=== PATIENT | female | born 1955 | race Caucasian/White ===

== ENCOUNTER → 2016-12-08 | Outpatient (CLI) | payer MEDICAID ==
--- NOTE | 2016-12-09 10:54 | MM ---
Reason for exam: screening (asymptomatic). Last mammogram was performed 1 year and 7 months ago. History: Patient is postmenopausal. Physical Findings: A clinical breast exam by your physician is recommended on an annual basis and results should be correlated with mammographic findings. MG 3D Screening Mammo W/Cad Bilateral CC and MLO view(s) were taken. Prior study comparison: May 23, 2015, bilateral MG 3d screening mammo w/cad. December 22, 2012, mammogram, performed at [facility]. There are scattered fibroglandular densities. There is no discrete abnormality. No significant changes when compared with prior studies. ASSESSMENT: Negative, BI-RAD 1 RECOMMENDATION: Routine screening mammogram of both breasts in 1 year.
== END | disposition home or self-care (01) ==
LOC: RADMAMWWP 13:17
PROVIDERS: ATTEND Obstetrics & Gynecology
DX: Z12.31 Encounter for screening mammogram for malignant neoplasm of breast (principal)
CPT/HCPCS: 77063; G0202

== ENCOUNTER → 2017-05-22 | Outpatient (CLI) | payer MEDICAID ==
--- NOTE | 2017-05-23 12:13 | MR ---
EXAMINATION TYPE: MR lumbar spine wo con DATE OF EXAM: 05/22/2017 COMPARISON: NONE HISTORY: Low Back pain x20 years, pain mostly LLE TECHNIQUE: Multiplanar, multisequence images of the lumbar spine were acquired. FINDINGS: There is grade 1 anterolisthesis of L4 on L5. Patchy bone marrow signal is within normal li mits overall with multiple T1 hyperintense and T2 hyperintense vertebral body hemangiomas specificall y at L4 and S1. Degenerative endplate changes and Schmorl's nodes are noted most significant at L5-S1 . Multilevel disc desiccation is seen throughout the visualized thoracolumbar spine. Vertebral body h eights are maintained. L1-L2: There is a small left paracentral disc herniation creating mild spinal canal stenosis without neural foraminal narrowing bilaterally. L2-L3: There is a small broad-based disc bulge, facet arthropathy and ligamentum flavum buckling that creates mild spinal canal stenosis with only very minimal neural foraminal narrowing bilaterally. L3-L4: There is a broad-based disc bulge, facet arthropathy and ligamentum flavum buckling creating m ild bilateral neural foraminal narrowing and spinal canal stenosis. L4-L5: There is disc uncovering secondary to the anterolisthesis of L4 on L5. Facet arthropathy and l igamentum flavum buckling contribute to mild spinal canal stenosis and minimal bilateral neural hiram inal narrowing. L5-S1: There is a disc bulge, facet arthropathy and ligamentum flavum buckling that create minimal bi lateral neural foraminal narrowing. No spinal canal stenosis. IMPRESSION: 1. Small left paracentral disc herniation at L1-L2 creating mild spinal canal stenosis. 2. Grade 1 anterolisthesis of L4 and L5 with disc uncovering. 3. Moderate multilevel degenerative disc disease resulting in mild spinal canal stenosis from L1 thro ugh L5 and variable degrees of neural foraminal stenosis as described above.
== END | disposition home or self-care (01) ==
LOC: RADMRIMAIN 14:37
PROVIDERS: ATTEND Physical Medicine & Rehabilitation
DX: M48.061 Spinal stenosis, lumbar region without neurogenic claudication (principal); M99.73 Connective tissue and disc stenosis of intervertebral foramina of lumbar region; M51.16 Intervertebral disc disorders with radiculopathy, lumbar region; M43.16 Spondylolisthesis, lumbar region
CPT/HCPCS: 72148

== ENCOUNTER → 2017-07-27 | Outpatient (CLI) | payer MEDICAID ==
[2017-07-27 13:10] LABS: HCT 40.6 % (34.0-46.0); HGB 13.8 gm/dL (11.4-16.0); MCH 30.6 pg (25.0-35.0); MCHC 33.9 g/dL (31.0-37.0); MCV 90.1 fL (80.0-100.0); Mean Platelet Volume 7.1; Platelet Count 223 k/uL (150-450); RBC 4.51 m/uL (3.80-5.40); WBC 6.5 k/uL (3.8-10.6)
[2017-07-27 13:24] LABS: ALT 30 U/L (9-52); AST 35 U/L (14-36); Albumin 4.1 g/dL (3.5-5.0); Alkaline Phosphatase 88 U/L (38-126); Anion Gap 11 mmol/L; Blood Urea Nitrogen 18 mg/dL (7-17); Calcium 9.8 mg/dL (8.4-10.2); Carbon Dioxide 29 mmol/L (22-30); Chloride 104 mmol/L (98-107); Glucose 130 mg/dL (74-99); Potassium 4.6 mmol/L (3.5-5.1); Sodium 144 mmol/L (137-145); Total Bilirubin 0.6 mg/dL (0.2-1.3); Total Protein 7.2 g/dL (6.3-8.2)
== END | disposition home or self-care (01) ==
LOC: LABWHC1 12:47
PROVIDERS: ATTEND Internal Medicine
DX: K21.9 Gastro-esophageal reflux disease without esophagitis (principal)
CPT/HCPCS: 36415; 80053; 85027

== ENCOUNTER 2017-08-24 06:10 | Day surgery (SDC) | payer MEDICAID ==
[2017-08-19 14:23] VITALS: BMI 23.1
[~2017-08-24 06:10] MED LIST: LACTATED RINGERS 1,000 ML IV SCH
[2017-08-24 06:55] VITALS: RESP 16; TEMP 97.9
[2017-08-24] MEDS ORDERED: LACTATED RINGERS 1,000 ML IV ONE (06:57)
[2017-08-24] MEDS ORDERED: PROPOFOL 10 MG/ML 20 ML VIAL IV ONE (07:04)
[2017-08-24] MEDS ORDERED: MIDAZOLAM 2 MG/2 ML VIAL ONE (07:04)
[2017-08-24] MEDS ORDERED: GLYCOPYRROLATE 0.2 MG/ML 2 ML VIAL ONE (07:04)
[2017-08-24] MEDS ORDERED: LIDOCAINE 1% INJ 10MG/ML (20 ML MDV) ONE (07:04)
[2017-08-24 07:50] VITALS: BP 137/84; PULSE 80
--- NOTE | 2017-08-24 08:03 | P.OP ---
Date of Procedure: 08/24/17 Preoperative Diagnosis: abdominal pain, GERD Postoperative Diagnosis: Gastritis Procedure(s) Performed: EGD with biopsy x 2 Anesthesia: MAC Surgeon: Saqib Real Estimated Blood Loss (ml): 1 Condition: stable Disposition: PACU Description of Procedure: Patient brought into the endo suite, timeout performed, correct patient, site, procedure verified. Scope passed down oropharynx and esophagus through stomach to first and second portion of duodenum. Slowly withdrawn, mild gastritis noted , antral biopsy taken, GE juntion biopsy taken, scope retroflexed and no significant hiatal hernia noted, all pinon of stomach were visualized. Slowly withdrawn through esophagus no other abnormalities noted. Patient tolerated procedure well.
== END 2017-08-24 08:46 | disposition home or self-care (01) ==
LOC: ORWHC2ENDO 06:10
PROVIDERS: ATTEND Student in an Organized Health Care Education/Training Program
DX: K29.50 Unspecified chronic gastritis without bleeding (principal); K21.0 Gastro-esophageal reflux disease with esophagitis; M19.90 Unspecified osteoarthritis, unspecified site; E03.9 Hypothyroidism, unspecified; Z79.899 Other long term (current) drug therapy; Z82.49 Family history of ischemic heart disease and other diseases of the circulatory system
CPT/HCPCS: 88305; 43239; J2250; J2001; J2704

== ENCOUNTER → 2017-10-21 | Outpatient (CLI) | payer MEDICAID ==
--- NOTE | 2017-10-21 07:54 | US ---
EXAMINATION TYPE: US abdomen limited DATE OF EXAM: 10/21/2017 COMPARISON: NONE CLINICAL HISTORY: K29.70 gastritis without bleeding. EXAM MEASUREMENTS: Liver Length: 10.0 cm Gallbladder Wall: 0.2 cm CBD: 0.4 cm Right Kidney: 9.8 x 3.5 x 5.1 cm Pancreas: wnl Liver: wnl Gallbladder: No stones seen Evidence for sonographic Vivas's sign: No CBD: wnl Right Kidney: No hydronephrosis or masses seen IMPRESSION: Unremarkable limited abdominal ultrasound.
== END | disposition home or self-care (01) ==
LOC: RADUSWWP 06:52
PROVIDERS: ATTEND Internal Medicine
DX: K29.70 Gastritis, unspecified, without bleeding (principal)
CPT/HCPCS: 76705

== ENCOUNTER → 2017-11-22 | Outpatient (CLI) | payer MEDICAID ==
--- NOTE | 2017-11-22 09:06 | XR ---
EXAMINATION TYPE: XR chest 2V DATE OF EXAM: 11/22/2017 COMPARISON: NONE HISTORY: Shortness of breath TECHNIQUE: Frontal and lateral views of the chest are obtained. FINDINGS: Scattered senescent parenchymal changes noted. Hyperinflation compatible with COPD. No evidence for infiltrate. No evidence for atelectasis. Heart size is stable. Mediastinal structures are stable and grossly unremarkable. No evidence for hilar prominence. Degenerative changes dorsal spine. IMPRESSION: 1. No evidence for acute pulmonary disease.
== END | disposition home or self-care (01) ==
LOC: RADXRMAIN 08:45
PROVIDERS: ATTEND Internal Medicine
DX: R05 Cough (principal)
CPT/HCPCS: 71046

== ENCOUNTER → 2017-12-15 | Outpatient (CLI) | payer MEDICAID ==
--- NOTE | 2017-12-16 12:27 | MM ---
Reason for exam: screening (asymptomatic). Last mammogram was performed 1 year ago. History: Patient is postmenopausal. Physical Findings: A clinical breast exam by your physician is recommended on an annual basis and results should be correlated with mammographic findings. MG 3D Screening Mammo W/Cad Bilateral CC and MLO view(s) were taken. Prior study comparison: December 08, 2016, bilateral MG 3d screening mammo w/cad. May 23, 2015, bilateral MG 3d screening mammo w/cad. There are scattered fibroglandular densities. No significant changes when compared with prior studies. ASSESSMENT: Benign, BI-RAD 2 RECOMMENDATION: Routine screening mammogram of both breasts in 1 year.
== END | disposition home or self-care (01) ==
LOC: RADMAMWWP 07:36
PROVIDERS: ATTEND Obstetrics & Gynecology
DX: Z12.31 Encounter for screening mammogram for malignant neoplasm of breast (principal)
CPT/HCPCS: 77063; 77067

== ENCOUNTER → 2017-12-29 | Outpatient (CLI) | payer MEDICAID ==
--- NOTE | 2017-12-29 12:26 | CT ---
EXAMINATION TYPE: CT chest wo con DATE OF EXAM: 12/29/2017 COMPARISON: Radiographs 11/22/2017 HISTORY: 62-year-old female with cough for 6 months TECHNIQUE: Contiguous axial scanning of the chest without IV contrast. Coronal and sagittal reconstru ctions performed. CT DLP: 511 mGycm Automated exposure control for dose reduction was used. FINDINGS: Heart normal size without pericardial effusion. Aorta normal caliber with conventional arch vessel branching anatomy. Numerous nonenlarged mediastinal lymph nodes are present measuring up to 7 mm. No thoracic lymphadeno michael by CT size criteria. Evaluation of the lungs shows a couple 3 mm pulmonary nodules on the right, axial image 25, 28, and 3 0. Additional 4 mm pulmonary nodules anterior right lung axial images 32 and 34. Minimal distal airways mucoid impaction in the inferior lingula, axial image 48 and to a lesser exten t within the medial segment right middle lobe, axial image 38. Minimal patch of groundglass in the li ngula on axial image 36. 4 mm left midlung pulmonary nodule along the major fissure, axial image 33. No consolidation or pleural effusion. Visualized upper abdomen shows no gross abnormality. Bones: No osseous destructive process. Cervical spondylosis. IMPRESSION: SCATTERED PULMONARY NODULES MEASURING UP TO 4 MM. SOME OF THESE DENSITIES SEEM TO CORRESPOND TO SMALL AIRWAYS MUCOID IMPACTION. THERE IS ALSO A SUBTLE PATCH OF GROUNDGLASS IN THE LINGULA SUGGESTING A NO NSPECIFIC SMALL INFECTIOUS/INFLAMMATORY FOCUS. CORRELATE FOR POSSIBLE BRONCHITIS OR INDOLENT INFECTIO N. ONE-YEAR FOLLOW-UP CAN REASSESS THE PULMONARY NODULES.
== END ==
LOC: RADCTMAIN 10:53
PROVIDERS: ATTEND Internal Medicine
DX: R91.8 Other nonspecific abnormal finding of lung field (principal)
CPT/HCPCS: 71250

== ENCOUNTER → 2018-01-12 | Outpatient (CLI) | payer MEDICAID ==
[2018-01-12 13:24] LABS: Basophils % (A) 1 %; Eosinophils # (A) 0.2 k/uL (0-0.7); Eosinophils % (A) 4 %; HCT 40.5 % (34.0-46.0); HGB 13.1 gm/dL (11.4-16.0); Lymphocytes % (A) 21 %; MCH 30.5 pg (25.0-35.0); MCHC 32.5 g/dL (31.0-37.0); Mean Platelet Volume 7.1; Monocytes # (A) 0.3 k/uL (0-1.0); Monocytes % (A) 7 %; Neutrophils # (A) 3.1 k/uL (1.3-7.7); Neutrophils % (A) 66 %; Platelet Count 228 k/uL (150-450); RBC 4.31 m/uL (3.80-5.40); RDW 12.8 % (11.5-15.5); WBC 4.7 k/uL (3.8-10.6)
[2018-01-13 11:01] LABS: Alt. alternata IgE Class CLASS 0; Alternaria alternata IgE <0.35 kU/L (<0.35); Asperg. fumagatus IgE <0.35 kU/L (<0.35); Asperg. fumagatus IgE Class CLASS 0; Bermuda Grass IgE <0.35 kU/L (<0.35); Birch(Com.Silvr) IgE <0.35 kU/L (<0.35); Birch(Com.Silvr) IgE Class CLASS 0; Cat Epith & Dander IgE <0.35 kU/L (<0.35); Cat Epith & Dander IgE Class CLASS 0; Clad herbarum IgE <0.35 kU/L (<0.35); Cockroach IgE <0.35 kU/L (<0.35); Cottonwood IgE <0.35 kU/L (<0.35); Dermato. Pteronyssinus IgE <0.35 kU/L (<0.35); Dermato. farinae IgE <0.35 kU/L (<0.35); Dermato. farinae IgE Class CLASS 0; Dog Dander IgE <0.35 kU/L (<0.35); Elm IgE <0.35 kU/L (<0.35); Maple (Box Elder) IgE <0.35 kU/L (<0.35); Maple (Box Elder) IgE Class CLASS 0; Mountain Cedar IgE <0.35 kU/L (<0.35); Mountain Cedar IgE Class CLASS 0; Mouse Urine IgE Class CLASS 0; Nettle IgE <0.35 kU/L (<0.35); Nettle IgE Class CLASS 0; Oak IgE <0.35 kU/L (<0.35); Penicillium notatum IgE Class CLASS 0; Rough Marshelder IgE <0.35 kU/L (<0.35); Rough Marshelder IgE Class CLASS 0; Timothy Grass IgE <0.35 kU/L (<0.35); White Ash IgE Class CLASS 0
== END | disposition home or self-care (01) ==
LOC: LABWHC1 12:14
PROVIDERS: ATTEND Internal Medicine Pulmonary Disease
DX: R05 Cough (principal); R06.02 Shortness of breath; J45.909 Unspecified asthma, uncomplicated
CPT/HCPCS: 36415; 82103; 82104; 82785; 85025; 86001; 86003; 86606; 86609

== ENCOUNTER 2018-02-05 12:04 | Emergency (ER) | payer MEDICAID ==
[2018-02-05 12:33] VITALS: RESP 16
[2018-02-05 12:34] VITALS: TEMP 97.2
[2018-02-05] MEDS ORDERED: ONDANSETRON 4 MG/2 ML VIAL IVP STA (13:03)
[2018-02-05] MEDS ORDERED: SODIUM CHLORIDE 0.9% 1,000 ML IV STA (13:03)
[2018-02-05] MEDS ORDERED: PANTOPRAZOLE 40 MG/10 ML VIAL IVP STA (13:03)
--- NOTE | 2018-02-05 13:19 | ED ---
Abdominal Pain HPI - General Chief Complaint: Abdominal Pain Stated Complaint: nausea/vomiting Time Seen by Provider: 02/05/18 12:27 Source: patient, family, RN notes reviewed, old records reviewed Mode of arrival: ambulatory Limitations: no limitations - History of Present Illness Initial Comments: This is a 62-year-old female the ER for evaluation. She was essay for evaluation regarding abdominal pain. Patient does have epigastric periumbilical abdominal pain. No radiation pain is diffuse. No prior history of sore pain no fevers she does have nausea and vomiting no diarrhea. No failure hours of significant similar symptoms. No sick contacts or travel history MD Complaint: abdominal pain Location: diffuse, periumbilical, RUQ, epigastric Migration to: no migration Severity: mild Quality: aching Consistency: constant Improves With: nothing Worsens With: nothing Associated Symptoms: denies other symptoms, vomiting - Related Data Home Medications Medication Instructions Recorded Confirmed Cetirizine HCl [Zyrtec] 10 mg PO HS 07/03/15 08/24/17 Levothyroxine Sodium [Levoxyl] 112 mcg PO DAILY 07/03/15 08/24/17 Naproxen 500 mg PO DAILY 07/03/15 08/24/17 Citalopram Hydrobromide [CeleXA] 20 mg PO DAILY 08/19/17 08/24/17 Previous Rx's Medication Instructions Recorded Nitrofurantoin Monohyd/M-Cryst 100 mg PO Q12HR #10 cap 02/05/18 [Macrobid] Ondansetron Odt [Zofran ODT] 4 mg PO Q8HR PRN #30 tab 02/05/18 Allergies Allergy/AdvReac Type Severity Reaction Status Date / Time No Known Allergies Allergy Verified 02/05/18 12:30 Review of Systems ROS Statement: Those systems with pertinent positive or pertinent negative responses have been documented in the HPI. ROS Other: All systems not noted in ROS Statement are negative. Past Medical History Past Medical History: GERD/Reflux, Osteoarthritis (OA), Thyroid Disorder Additional Past Medical History / Comment(s): hx difficulty swallowing History of Any Multi-Drug Resistant Organisms: None Reported Past Surgical History: Tubal Ligation Past Anesthesia/Blood Transfusion Reactions: No Reported Reaction Past Psychological History: No Psychological Hx Reported Smoking Status: Never smoker Past Alcohol Use History: None Reported Past Drug Use History: None Reported - Past Family History Mother Family Medical History: Cancer Additional Family Medical History / Comment(s): lymphoma Sister(s) Family Medical History: Cancer Additional Family Medical History / Comment(s): colon Father Family Medical History: CVA/TIA Additional Family Medical History / Comment(s): buergers disease General Exam Limitations: no limitations General appearance: alert, in no apparent distress Head exam: Present: atraumatic, normocephalic, normal inspection Eye exam: Present: normal appearance, PERRL, EOMI. Absent: scleral icterus, conjunctival injection, periorbital swelling ENT exam: Present: normal exam, mucous membranes moist Neck exam: Present: normal inspection. Absent: tenderness, meningismus, lymphadenopathy Respiratory exam: Present: normal lung sounds bilaterally. Absent: respiratory distress, wheezes, rales, rhonchi, stridor Cardiovascular Exam: Present: regular rate, normal rhythm, normal heart sounds. Absent: systolic murmur, diastolic murmur, rubs, gallop, clicks GI/Abdominal exam: Present: soft, normal bowel sounds. Absent: distended, tenderness, guarding, rebound, rigid Extremities exam: Present: normal inspection, full ROM, normal capillary refill. Absent: tenderness, pedal edema, joint swelling, calf tenderness Back exam: Present: normal inspection Neurological exam: Present: alert, oriented X3, CN II-XII intact Psychiatric exam: Present: normal affect, normal mood Skin exam: Present: warm, dry, intact, normal color. Absent: rash Course Vital Signs 02/05/18 12:30 Temperature 97.2 F L Pulse Rate 77 Respiratory 16 Rate Blood Pressure 161/88 O2 Sat by Pulse 98 Oximetry Medical Decision Making - Medical Decision Making 62 female the ER for evaluation, patient was essay for evaluation of nausea vomiting abdominal pain. Patient has positive urinary tract infection, nausea is controlled patient can be discharged home - Lab Data Result diagrams: 02/05/18 12:48 02/05/18 12:48 Lab Results 02/05/18 02/05/18 02/05/18 Range/Units 12:48 12:48 12:48 WBC 5.8 (3.8-10.6) k/uL RBC 4.36 (3.80-5.40) m/uL Hgb 13.7 (11.4-16.0) gm/dL Hct 39.6 (34.0-46.0) % MCV 90.8 (80.0-100.0) fL MCH 31.4 (25.0-35.0) pg MCHC 34.6 (31.0-37.0) g/dL RDW 12.8 (11.5-15.5) % Plt Count 222 (150-450) k/uL Neutrophils % 79 % Lymphocytes % 14 % Monocytes % 4 % Eosinophils % 2 % Basophils % 0 % Neutrophils # 4.5 (1.3-7.7) k/uL Lymphocytes # 0.8 L (1.0-4.8) k/uL Monocytes # 0.3 (0-1.0) k/uL Eosinophils # 0.1 (0-0.7) k/uL Basophils # 0.0 (0-0.2) k/uL Sodium 139 (137-145) mmol/L Potassium 3.9 (3.5-5.1) mmol/L Chloride 108 H (98-107) mmol/L Carbon Dioxide 23 (22-30) mmol/L Anion Gap 8 mmol/L BUN 19 H (7-17) mg/dL Creatinine 0.73 (0.52-1.04) mg/dL Est GFR (CKD-EPI)AfAm >90 (>60 ml/min/1.73 sqM) Est GFR (CKD-EPI)NonAf 88 (>60 ml/min/1.73 sqM) Glucose 108 H (74-99) mg/dL Calcium 9.5 (8.4-10.2) mg/dL Total Bilirubin 0.8 (0.2-1.3) mg/dL AST 36 (14-36) U/L ALT 29 (9-52) U/L Alkaline Phosphatase 75 (38-126) U/L Total Creatine Kinase 197 H (30-135) U/L CK-MB (CK-2) 1.3 (0.0-2.4) ng/mL CK-MB (CK-2) Rel Index 0.7 Troponin I <0.012 (0.000-0.034) ng/mL Total Protein 7.3 (6.3-8.2) g/dL Albumin 3.8 (3.5-5.0) g/dL Amylase 74 (30-110) U/L Lipase 55 (23-300) U/L Urine Color Urine Appearance (Clear) Urine pH (5.0-8.0) Ur Specific [place] (1.001-1.035) Urine Protein (Negative) Urine Glucose (UA) (Negative) Urine Ketones (Negative) Urine Blood (Negative) Urine Nitrite (Negative) Urine Bilirubin (Negative) Urine Urobilinogen (<2.0) mg/dL Ur Leukocyte Esterase (Negative) Urine RBC (0-5) /hpf Urine WBC (0-5) /hpf Ur Squamous Epith Cells (0-4) /hpf Hyaline Casts (0-2) /lpf Urine Mucus (None) /hpf 02/05/18 Range/Units 12:48 WBC (3.8-10.6) k/uL RBC (3.80-5.40) m/uL Hgb (11.4-16.0) gm/dL Hct (34.0-46.0) % MCV (80.0-100.0) fL MCH (25.0-35.0) pg MCHC (31.0-37.0) g/dL RDW (11.5-15.5) % Plt Count (150-450) k/uL Neutrophils % % Lymphocytes % % Monocytes % % Eosinophils % % Basophils % % Neutrophils # (1.3-7.7) k/uL Lymphocytes # (1.0-4.8) k/uL Monocytes # (0-1.0) k/uL Eosinophils # (0-0.7) k/uL Basophils # (0-0.2) k/uL Sodium (137-145) mmol/L Potassium (3.5-5.1) mmol/L Chloride (98-107) mmol/L Carbon Dioxide (22-30) mmol/L Anion Gap mmol/L BUN (7-17) mg/dL Creatinine (0.52-1.04) mg/dL Est GFR (CKD-EPI)AfAm (>60 ml/min/1.73 sqM) Est GFR (CKD-EPI)NonAf (>60 ml/min/1.73 sqM) Glucose (74-99) mg/dL Calcium (8.4-10.2) mg/dL Total Bilirubin (0.2-1.3) mg/dL AST (14-36) U/L ALT (9-52) U/L Alkaline Phosphatase (38-126) U/L Total Creatine Kinase (30-135) U/L CK-MB (CK-2) (0.0-2.4) ng/mL CK-MB (CK-2) Rel Index Troponin I (0.000-0.034) ng/mL Total Protein (6.3-8.2) g/dL Albumin (3.5-5.0) g/dL Amylase (30-110) U/L Lipase (23-300) U/L Urine Color Yellow Urine Appearance Clear (Clear) Urine pH 5.5 (5.0-8.0) Ur Specific [place] 1.022 (1.001-1.035) Urine Protein Trace H (Negative) Urine Glucose (UA) Negative (Negative) Urine Ketones Negative (Negative) Urine Blood Negative (Negative) Urine Nitrite Negative (Negative) Urine Bilirubin Negative (Negative) Urine Urobilinogen <2.0 (<2.0) mg/dL Ur Leukocyte Esterase Large H (Negative) Urine RBC 4 (0-5) /hpf Urine WBC 13 H (0-5) /hpf Ur Squamous Epith Cells 6 H (0-4) /hpf Hyaline Casts 4 H (0-2) /lpf Urine Mucus Few H (None) /hpf - Radiology Data Radiology results: report reviewed (CT head and pelvis negative for acute disease), image reviewed Disposition Clinical Impression: Abdominal colic, Nausea, UTI (urinary tract infection) Disposition: HOME SELF-CARE Condition: Good Instructions: Urinary Tract Infection in Women (ED) Prescriptions: Nitrofurantoin Monohyd/M-Cryst [Macrobid] 100 mg PO Q12HR #10 cap Ondansetron Odt [Zofran ODT] 4 mg PO Q8HR PRN #30 tab PRN Reason: nausea/vomiting Is patient prescribed a controlled substance at d/c from ED?: No Referrals: Tra Garcia MD [Primary Care Provider] - 1-2 days
[2018-02-05 13:34] LABS: Basophils % (A) 0 %; Eosinophils # (A) 0.1 k/uL (0-0.7); Eosinophils % (A) 2 %; HCT 39.6 % (34.0-46.0); HGB 13.7 gm/dL (11.4-16.0); Lymphocytes # (A) 0.8 k/uL (1.0-4.8); Lymphocytes % (A) 14 %; MCH 31.4 pg (25.0-35.0); MCHC 34.6 g/dL (31.0-37.0); MCV 90.8 fL (80.0-100.0); Mean Platelet Volume 7.3; Monocytes # (A) 0.3 k/uL (0-1.0); Monocytes % (A) 4 %; Neutrophils # (A) 4.5 k/uL (1.3-7.7); Neutrophils % (A) 79 %; Platelet Count 222 k/uL (150-450); RBC 4.36 m/uL (3.80-5.40); RDW 12.8 % (11.5-15.5); WBC 5.8 k/uL (3.8-10.6)
[2018-02-05 13:39] LABS: Appearance,Urine Clear (Clear); Bilirubin,Urine Negative (Negative); Blood,Urine Negative (Negative); Color,Urine Yellow; Glucose,Urine (UA) Negative (Negative); Hyaline Casts,Urine 4 /lpf (0-2); Ketones,Urine Negative (Negative); Leukocyte Esterase,Urine Large (Negative); Mucus,Urine Few /hpf; Nitrite,Urine Negative (Negative); PH, Urine 5.5 (5.0-8.0); Protein,Urine Trace (Negative); RBC,Urine 4 /hpf (0-5); Specific Gravity,Urine 1.022 (1.001-1.035); Squamous Epithelial Cell,Urine 6 /hpf (0-4); Urobilinogen,Urine <2.0 mg/dL (<2.0); WBC,Urine 13 /hpf (0-5)
[2018-02-05 13:50] LABS: ALT 29 U/L (9-52); AST 36 U/L (14-36); Albumin 3.8 g/dL (3.5-5.0); Alkaline Phosphatase 75 U/L (38-126); Amylase 74 U/L (30-110); Anion Gap 8 mmol/L; Blood Urea Nitrogen 19 mg/dL (7-17); Calcium 9.5 mg/dL (8.4-10.2); Carbon Dioxide 23 mmol/L (22-30); Chloride 108 mmol/L (98-107); Glucose 108 mg/dL (74-99); Lipase 55 U/L (23-300); Potassium 3.9 mmol/L (3.5-5.1); Sodium 139 mmol/L (137-145); Total Bilirubin 0.8 mg/dL (0.2-1.3); Total Protein 7.3 g/dL (6.3-8.2)
[2018-02-05 13:55] LABS: Creatine Kinase 197 U/L (30-135)
[2018-02-05 14:08] LABS: Creatine Kinase MB 1.3 ng/mL (0.0-2.4); Troponin I <0.012 ng/mL (0.000-0.034)
--- NOTE | 2018-02-05 14:48 | CT ---
EXAMINATION TYPE: CT abdomen pelvis w con DATE OF EXAM: 02/05/2018 HISTORY: Abdominal pain, generalized CT DLP: 529.5mGycm Automated Exposure Control for Dose Reduction was Utilized. CONTRAST: CT scan of the abdomen and pelvis is performed without oral but with IV Contrast, patient injected wi th 100 mL of Isovue 300. COMPARISON: None FINDINGS: LUNG BASES: No significant abnormality is appreciated. LIVER/GB: No significant abnormality is appreciated. PANCREAS: No significant abnormality is seen. SPLEEN: No significant abnormality is seen. ADRENALS: No significant abnormality is seen. KIDNEYS: No significant abnormality is seen. BOWEL: Evaluation bowel is suboptimal secondary to lack of enteric contrast. There is no suspicious s mall or large bowel dilatation seen. Cecum is low lying into the midline of the upper to mid pelvis. UTERUS/ADNEXA: Uterus is retroverted in shape. LYMPH NODES: No greater than 1cm abdominal or pelvic lymph nodes are appreciated. OSSEOUS STRUCTURES: There is moderate disc space narrowing L5-S1 level. There is mild disc space narr owing with vacuum disc phenomenon L3-L4 level. There is facet arthropathy lower lumbar spine. There i s mild axial joint space loss in both hips. OTHER: There is mild to moderate calcified plaque of aorta extending into branch vessels. IMPRESSION: No bowel obstruction is present. No significant acute finding is seen to account for diya ent's clinical symptoms.
[2018-02-05] MEDS ORDERED: NITROFURANTOIN MONOHYD/M-CRYST 100 MG CAP PO STA (15:04)
[2018-02-05 15:19] VITALS: BP 156/79; PULSE 81
== END 2018-02-05 15:21 | disposition home or self-care (01) ==
LOC: EC 12:04
DX: N39.0 Urinary tract infection, site not specified (principal); R11.2 Nausea with vomiting, unspecified; R10.33 Periumbilical pain; R10.11 Right upper quadrant pain; R10.13 Epigastric pain; M19.90 Unspecified osteoarthritis, unspecified site; E07.9 Disorder of thyroid, unspecified; Z98.51 Tubal ligation status; Z79.1 Long term (current) use of non-steroidal anti-inflammatories (NSAID); Z79.899 Other long term (current) drug therapy
CPT/HCPCS: 36415; 80053; 82150; 82550; 82553; 83690; 84484; 85025; 81001; 87086; 74177; 99284; 96374; 96375; 96361; J2405; C9113; Q9967

== ENCOUNTER → 2018-02-22 | Outpatient (CLI) | payer MEDICAID | END | disposition home or self-care (01) | LOC: CPPFTMAIN 10:28 | PROVIDERS: ATTEND Internal Medicine Pulmonary Disease | DX: R06.02 Shortness of breath (principal) | CPT/HCPCS: 94060; 94726; 94729 ==

== ENCOUNTER → 2018-05-05 | Outpatient (CLI) | payer MEDICAID ==
--- NOTE | 2018-05-05 15:50 | CT ---
EXAMINATION TYPE: CT chest wo con DATE OF EXAM: 05/05/2018 COMPARISON: 12/29/2017 HISTORY: SOB, cough. follow-up on previous scan w/nodules CT DLP: [address] of the chest was performed with lung and mediastinal window settings submitted. The la ck of contrast limits evaluation of the vascular, mediastinal and parenchymal structures including th e upper abdomen. LUNGS: The lungs are clear and free of infiltrate. No atelectasis. Again noted are scattered sub-4 mm pulmonary nodular densities throughout both lung farias. No new nodules or increase in size and pulm onary nodularity. Stable parenchymal scar in the region of the lingula as well as the right middle lo be. No pleural effusion. No CT evidence of interstitial lung disease. MEDIASTINUM/KEATON: Thoracic aorta is of normal caliber with limited evaluation given lack of contrast . The heart is not enlarged. No evidence for mediastinal mass. No lymph nodes greater than 1cm. UPPER ABDOMEN: No significant abnormality is seen. OTHER: No significant other abnormality. IMPRESSION: 1. Stable appearance of the chest with scattered tiny nonspecific sub-4 mm pulmonary nodularity. Sta bility over a two-year timeframe should be documented radiographically. Therefore follow-up in 1 year is advised.
== END | disposition home or self-care (01) ==
LOC: RADCTMAIN 14:31
PROVIDERS: ATTEND Internal Medicine Pulmonary Disease
DX: R05 Cough (principal); R06.02 Shortness of breath
CPT/HCPCS: 71250

== ENCOUNTER → 2018-08-01 | Outpatient (CLI) | payer MEDICAID ==
--- NOTE | 2018-08-01 11:23 | FL ---
EXAMINATION TYPE: FL barium swallow DATE OF EXAM: 08/01/2018 COMPARISON: None HISTORY: Difficulty swallowing pills TECHNIQUE: A double air contrast esophagus study is performed. FINDINGS: Fluoroscopy time: 1 minute 24 seconds. Images: 10 Esophagus dilates to normal caliber has normal contour to the gastroesophageal junction. The gastroes ophageal junction opens to normal caliber. No reflux could be elicited during this examination There are numerous tertiary contractions evident throughout this examination. Findings can be compati ble with presbyesophagus. IMPRESSIONS: 1. Presbyesophagus.
== END | disposition home or self-care (01) ==
LOC: RADFLWHC 09:52
PROVIDERS: ATTEND Otolaryngology
DX: K22.8 Other specified diseases of esophagus (principal)
CPT/HCPCS: 74220

== ENCOUNTER → 2018-08-15 | Outpatient (CLI) | payer MEDICAID ==
--- NOTE | 2018-08-15 13:21 | FL ---
COMPARISON: NONE DATE OF EXAM: 08/15/2018 HISTORY: Dysphasia A number of thin and thick substances were ingested under the care of the department of speech pathol ogy. There is no evidence of aspiration or penetration. There is no evidence of obstruction. 0 ilan ges submitted and 35 seconds of fluoroscopy time. IMPRESSION: 1. No evidence of aspiration or penetration.
== END | disposition home or self-care (01) ==
LOC: RADFLMAIN 10:53
PROVIDERS: ATTEND Otolaryngology
DX: R13.12 Dysphagia, oropharyngeal phase (principal)
CPT/HCPCS: 74230

== ENCOUNTER → 2018-11-29 | Outpatient (CLI) | payer MEDICAID ==
[2018-11-29 14:18] LABS: HCT 40.2 % (34.0-46.0); HGB 13.4 gm/dL (11.4-16.0); MCH 30.6 pg (25.0-35.0); MCHC 33.4 g/dL (31.0-37.0); MCV 91.4 fL (80.0-100.0); Mean Platelet Volume 7.2; Platelet Count 237 k/uL (150-450); RDW 13.2 % (11.5-15.5); WBC 6.2 k/uL (3.8-10.6)
[2018-11-29 18:34] LABS: African American GFR (CKD) 90.3 (60.0-200.0); Albumin 4.4 g/dL (3.80-4.90); Albumin/Globulin Ratio 1.76 (1.60-3.17); Anion Gap 5.2 mmol/L (4.00-12.00); Calcium 9.8 mg/dL (8.7-10.3); Carbon Dioxide 28.8 mmol/L (21.6-31.8); Globulin 2.5 g/dL (1.6-3.3); Potassium 4.1 mmol/L (3.5-5.5); Total Bilirubin 0.5 mg/dL (0.3-1.2); Total Protein 6.9 g/dL (6.2-8.2)
== END | disposition home or self-care (01) ==
LOC: LABWHC1 13:44
PROVIDERS: ATTEND Internal Medicine
DX: E03.9 Hypothyroidism, unspecified (principal); F41.9 Anxiety disorder, unspecified
CPT/HCPCS: 36415; 80053; 84439; 84443; 85027

== ENCOUNTER → 2019-01-20 | Outpatient (CLI) | payer MEDICAID ==
--- NOTE | 2019-01-23 09:31 | MM ---
Reason for exam: screening (asymptomatic). Last mammogram was performed 1 year and 1 month ago. History: Patient is postmenopausal. Physical Findings: A clinical breast exam by your physician is recommended on an annual basis and results should be correlated with mammographic findings. MG 3D Screening Mammo W/Cad Bilateral CC and MLO view(s) were taken. Prior study comparison: December 15, 2017, bilateral MG 3d screening mammo w/cad. December 08, 2016, bilateral MG 3d screening mammo w/cad. There are scattered fibroglandular densities. Benign appearing vascular bilateral calcifications. No suspicious abnormality. No significant changes when compared with prior studies. ASSESSMENT: Benign, BI-RAD 2 RECOMMENDATION: Routine screening mammogram of both breasts in 1 year.
== END | disposition home or self-care (01) ==
LOC: RADMAMWWP 09:15
PROVIDERS: ATTEND Obstetrics & Gynecology
DX: Z12.31 Encounter for screening mammogram for malignant neoplasm of breast (principal)
CPT/HCPCS: 77063; 77067

== ENCOUNTER → 2019-03-21 | Outpatient (CLI) | payer MEDICAID ==
[2019-03-21 15:48] LABS: African American GFR (CKD) 90.3 (60.0-200.0); Anion Gap 5.9 mmol/L (4.00-12.00); Calcium 9.6 mg/dL (8.7-10.3); Carbon Dioxide 29.1 mmol/L (21.6-31.8); Non-African American GFR(CKD) 77.9 (60.0-200.0); Potassium 4.5 mmol/L (3.5-5.5)
== END | disposition home or self-care (01) ==
LOC: LABWHC1 10:40
PROVIDERS: ATTEND Internal Medicine
DX: E03.9 Hypothyroidism, unspecified (principal); R79.89 Other specified abnormal findings of blood chemistry
CPT/HCPCS: 36415; 80048; 84443

== ENCOUNTER → 2019-09-12 | Outpatient (CLI) | payer MEDICARE ==
[2019-09-12 15:05] LABS: African American GFR (CKD) >90 (>60 ml/min/1.73 sqM); Blood Urea Nitrogen 20 mg/dL (7-17); Non-African American GFR(CKD) 86 (>60 ml/min/1.73 sqM)
--- NOTE | 2019-09-12 19:33 | CT ---
EXAMINATION TYPE: CT chest w con DATE OF EXAM: 09/12/2019 COMPARISON: 05/05/2018 and 12/29/2017 HISTORY: 64-year-old female follow up pulmonary nodule TECHNIQUE: Contiguous axial scanning of the chest after the administration of 100 mL of Isovue 300. Coronal/sagittal reconstructions performed. CT DLP: 145.6mGycm. Automatic exposure control utilized for a dose reduction. FINDINGS: Heart normal size without pericardial effusion. Aorta normal caliber with conventional arch vessel branching anatomy. Stable 7 mm precarinal lymph node. No thoracic lymphadenopathy. Prominent lymph nodes at the bilateral yvonne measuring 8 mm on the right and 7 mm on the left were not apparent on the previous noncontrast studies. Suspected to be stable from the prior exams. The mild strandy atelectasis at the left greater than right lung bases. No consolidation or pleural e ffusion. 4 mm left mid lung pulmonary nodule, axial image 33, unchanged. Tiny 2 mm anterior right midlung pulmonary nodule, axial image 28, unchanged. A couple 4 mm anterior right midlung pulmonary nodules on axial image 31 and 33, unchanged. No new or enlarging pulmonary nodules are identified. Visualized upper abdomen shows no adenopathy. Bones: Partially visualized cervical spondylosis. No osseous destructive process. IMPRESSION: 1. Scattered small 4 mm smaller pulmonary nodules unchanged back to 12/29/2017 compatible with a yareli gn etiology. 2. Prominent bilateral hilar lymph nodes measuring up to 8 mm now seen on this postcontrast study. Li mited assessment on the prior noncontrast studies. Suspect these nodes to be stable; likely chronic p ostinflammatory etiology.
== END | disposition home or self-care (01) ==
LOC: RADCTMAIN 14:33
PROVIDERS: ATTEND Internal Medicine Hematology & Oncology
DX: R91.8 Other nonspecific abnormal finding of lung field (principal); Z91.048 Other nonmedicinal substance allergy status
CPT/HCPCS: 82565; 84520; 71260; 36415; Q9967

== ENCOUNTER → 2020-04-19 | Outpatient (CLI) | payer MEDICARE ==
--- NOTE | 2020-04-22 10:34 | MM ---
Reason for exam: screening (asymptomatic). Last mammogram was performed 1 year and 3 months ago. History: Patient is postmenopausal. Took hormonal contraceptives for 1 year 6 months. Physical Findings: A clinical breast exam by your physician is recommended on an annual basis and results should be correlated with mammographic findings. MG 3D Screening Mammo W/Cad Bilateral CC and MLO view(s) were taken. Prior study comparison: January 20, 2019, bilateral MG 3d screening mammo w/cad. December 15, 2017, bilateral MG 3d screening mammo w/cad. The breast tissue is heterogeneously dense. This may lower the sensitivity of mammography. There is no discrete abnormality. No significant changes when compared with prior studies. ASSESSMENT: Negative, BI-RAD 1 RECOMMENDATION: Routine screening mammogram of both breasts in 1 year.
== END | disposition home or self-care (01) ==
LOC: RADMAMWWP 10:21
PROVIDERS: ATTEND Obstetrics & Gynecology
DX: Z12.31 Encounter for screening mammogram for malignant neoplasm of breast (principal)
CPT/HCPCS: 77063; 77067

== ENCOUNTER → 2021-09-05 | Outpatient (CLI) | payer MEDICARE ==
--- NOTE | 2021-09-08 14:03 | MM ---
Reason for Exam: Screening (asymptomatic). Last mammogram was performed 1 year(s) and 4 month(s) ago. Patient History: Menarche at age 11. First Full-Term at age 19. Postmenopausal. Hormonal Contraceptives for 1 year, 6 months. Risk Values: Tiffanie 5 year model risk: 1.5%. NCI Lifetime model risk: 5.2%. Prior Study Comparison: 12/15/2017 Bilateral Screening Mammogram, [facility]. 01/20/2019 Bilateral Screening Mammogram, [facility]. 04/19/2020 Bilateral Screening Mammogram, [facility]. Tissue Density: There are scattered fibroglandular densities. Findings: Analyzed By CAD. A few benign vascular calcifications are noted. No significant change from prior exams. Overall Assessment: Negative, BI-RAD 1 Management: Screening Mammogram of both breasts in 1 year. 1. Patient should continue monthly self breast exams. 2. A clinical breast exam by your physician is recommended on an annual basis. 3. This exam should not preclude additional follow-up of suspicious palpable abnormalities. Electronically signed and approved by: Tay Cherry M.D. Radiologist
== END | disposition home or self-care (01) ==
LOC: RADMAMWWP 11:37
PROVIDERS: ATTEND Obstetrics & Gynecology
DX: Z12.31 Encounter for screening mammogram for malignant neoplasm of breast (principal)
CPT/HCPCS: 77063; 77067

== ENCOUNTER → 2021-12-18 | Outpatient (CLI) | payer MEDICARE ==
--- NOTE | 2021-12-20 09:32 | MR ---
EXAMINATION TYPE: MR lumbar spine wo con DATE OF EXAM: 12/18/2021 9:06 AM COMPARISON: MRI Lumbar spine 05/22/2017, CT abdomen pelvis 02/05/2018 CLINICAL INDICATION:Female, 66 years old with history of M54.16 RADICULOPATHY, LUMBAR REGION; TECHNIQUE: Multi planar, multi sequence imaging was performed utilizing: T1-weighted, T2-weighted, a nd turbo inversion recovery imaging of the lumbar spine. IV Contrast: None FINDINGS: Alignment: The lumbar vertebral bodies have preserved heights and alignment. Cord: The conus medullaris and the distal spinal cord appear unremarkable with regards to their signa l intensity and morphology. Bones/Discs: Version recovery signal is seen at the adjoining endplates of L5-S1. Multilevel degenera tive disc disease is noted and most pronounced at the L5-S1. There is complete loss of disc height at L5-S1. The remainder of the vertebral disk signals are maintained. L1-L2: Somewhat eccentric left disc bulge with mild spinal canal narrowing. The neural foramina mildl y narrowed. L2-L3: Disc bulge with facet joint arthropathy result in mild spinal canal stenosis. The neural hiram en are mildly narrowed. L3-L4: Disc bulge with facet joint arthropathy result in mild spinal canal stenosis. The neural hiram en are mildly narrowed. L4-L5: Disc bulge with facet joint arthropathy result in moderate spinal canal stenosis. The neural f oramen are mildly narrowed. L5-S1: Complete loss of disc height with disc bulging posteriorly and facet joint arthropathy without significant spinal canal stenosis. Mild neural foraminal narrowing. Other findings: Extra renal pelves bilaterally. IMPRESSION: 1. No definitive evidence of disc herniation or significant spinal canal stenosis. 2. Multilevel disc degeneration with associated osteoarthritic changes worse at L5-S1 with complete loss of disc height and bony edema, findings have progressed from 2018.
== END | disposition home or self-care (01) ==
LOC: RADMRIMAIN 08:07
PROVIDERS: ATTEND Physical Medicine & Rehabilitation
DX: M43.16 Spondylolisthesis, lumbar region (principal); M47.816 Spondylosis without myelopathy or radiculopathy, lumbar region
CPT/HCPCS: 72148